=== PATIENT | male | born 1990 | race African-American/Black ===

== ENCOUNTER 2020-08-21 14:38 | Emergency (ER) | payer SELFPAY ==
[2020-08-21 14:50] VITALS: BMI 46.0
[2020-08-21] MEDS ORDERED: morphine CARPU-JECT 4 MG/1 ML DISP.SYRIN IVPUSH ONE (15:45)
[2020-08-21] MEDS ORDERED: SODIUM CHLORIDE 0.9% 500 ML INFUS.BAG IV ONE (15:45)
[2020-08-21] MEDS ORDERED: morphine SULFATE 4 MG/ML VIAL ONE (16:05)
[2020-08-21 16:31] LABS: BASO % 0.8 % (0-2.0); EOS % 1.8 % (0-4.5); HEMATOCRIT 39.5 % (35.4-49); HEMOGLOBIN 13.9 GM/dL (11.7-16.9); LYMPH % 22.2 % (8-40); MCH 28.6 pg (25.7-33.7); MCHC 35.4 g/dl (32.0-35.9); MEAN CELL VOLUME 80.8 fl (80-96); MONO % 6.6 % (3.8-10.2); NEUT % 68.6 % (42.8-82.8); PLATELET COUNT 299 K/MM3 (134-434); RBC 4.88 M/mm3 (4.00-5.60); RDW 17.3 % (11.9-15.9); WHITE BLOOD COUNT 9.7 K/mm3 (4.0-10.0)
[2020-08-21 16:38] LABS: ALBUMIN 3.7 g/dl (3.4-5.0); CALCIUM 9.2 mg/dL (8.5-10.1)
[2020-08-21 16:39] LABS: BLOOD UREA NITROGEN 21.4 mg/dL (7-18)
[2020-08-21 16:42] LABS: CREATININE 1.3 mg/dL (0.55-1.3)
[2020-08-21 16:43] LABS: BILIRUBIN,TOTAL 0.4 mg/dL (0.2-1); TOT PROT 7.7 g/dl (6.4-8.2)
[2020-08-21 18:15] VITALS: BP 148/88; PULSE 91; TEMP 98
== END 2020-08-21 17:45 | disposition home or self-care (01) ==
LOC: JER 14:38
PROC: 3E033NZ Introduction of Analgesics, Hypnotics, Sedatives into Peripheral Vein, Percutaneous Approach (ICD-10-PCS; principal; 2020-08-21)
DX: K42.9 Umbilical hernia without obstruction or gangrene (principal)
CPT/HCPCS: 36415; 80053; 85025; 99284-25

== ENCOUNTER 2022-01-14 18:02 | Emergency (ER) | payer SELFPAY ==
[2022-01-14 18:30] VITALS: BMI 43.9
[2022-01-14 23:49] LABS: BASO % 0.7 % (0-2.0); EOS % 1.8 % (0-4.5); HEMATOCRIT 33.9 % (35.4-49); HEMOGLOBIN 11.8 GM/dL (11.7-16.9); LYMPH % 20.7 % (8-40); MCH 27.1 pg (25.7-33.7); MCHC 34.8 g/dl (32.0-35.9); MEAN CELL VOLUME 77.9 fl (80-96); MEAN PLT VOLUME 7.2 fl (7.5-11.1); MONO % 10.2 % (3.8-10.2); NEUT % 66.6 % (42.8-82.8); PLATELET COUNT 327 10^3/uL (134-434); RBC 4.35 M/mm3 (4.00-5.60); RDW 17.3 % (11.9-15.9); WHITE BLOOD COUNT 8.9 K/mm3 (4.0-10.0)
[2022-01-15 00:20] LABS: CALCIUM 8.6 mg/dL (8.5-10.1)
[2022-01-15 00:21] LABS: ALBUMIN 3.2 g/dl (3.4-5.0); BLOOD UREA NITROGEN 19.2 mg/dL (7-18)
[2022-01-15 00:24] LABS: CREATININE 1.6 mg/dL (0.55-1.3)
[2022-01-15 00:26] LABS: BILIRUBIN,TOTAL 0.4 mg/dL (0.2-1); TOT PROT 7.3 g/dl (6.4-8.2)
[2022-01-15] MEDS ORDERED: PIPERACILLIN/TAZOB 3.375 GM 3.375 GM in DEXTROSE 5%-WATER - 50 ML IVPB ONE (00:26)
[2022-01-15] MEDS ORDERED: PIPERACILLIN/TAZOB 3.375 GM 3.375 GM/50 ML BAG IVPB ONE (00:44)
[2022-01-15 01:06] LABS: URIC ACID 9.3 mg/dL (2.6-7.2)
[2022-01-15 02:05] VITALS: BP 142/81; PULSE 92; RESP 18; TEMP 98.1
== END 2022-01-15 02:05 | disposition left against medical advice (07) ==
LOC: JERFT 18:02
PROC: 3E033GC Introduction of Other Therapeutic Substance into Peripheral Vein, Percutaneous Approach (ICD-10-PCS; principal; 2022-01-14)
DX: L03.115 Cellulitis of right lower limb (principal)
CPT/HCPCS: 0241U-QW; 36415; 73630-TC-RT-FY; 80053; 84550; 85025; 87040; 93971-TC; 99284-25